=== PATIENT | male | born 1965 | race Caucasian/White ===

== ENCOUNTER 2022-03-08 20:03 | Emergency (ER) | payer OTHER, MEDICAID, SELFPAY ==
[2022-03-08] VITALS (7 sets, daily range): BP systolic 137–178; BP diastolic 76–99; PULSE 64–98; RESP 18; TEMP 37; O2SAT 97–100; BMI 22.4
[2022-03-08] MEDS: ONDANSETRON 4 MG/2 ML INJ IV (20:30)
[2022-03-08 20:36] LABS: Add Manual Diff / Slide Review NO; Basophils Absolute Auto 0 /uL (0-100); Basophils Percent Auto 0.5 % (0-2); Eosinophils Absolute Auto 0 /uL (0-450); Eosinophils Percent Auto 0.4 % (2-4); Hematocrit 36.8 % (41-53); Hemoglobin 13.1 g/dL (13.5-17.5); Lymphocytes Absolute Auto 1100 /uL (1100-4500); Lymphocytes Percent Auto 13.1 % (25-40); Mean Corpuscular HGB Conc 35.7 % (30-36); Mean Corpuscular Hemoglobin 36.9 PG (26-34); Mean Corpuscular Volume 103.3 fL (80-100); Monocytes Absolute Auto 600 /uL (0-900); Monocytes Percent Auto 7.9 % (3-14); Neutrophils Absolute Auto 6300 /uL (1500-7000); Neutrophils Percent Auto 78.1 % (50-75); Platelet Count 161 X10^3/uL (150-400); Red Blood Cell Count 3.56 X10^6/uL (4.5-5.9); Red Cell Distribution Width 12.8 % (11.6-14.8); White Blood Cell Count 8.1 X10^3/uL (4.5-11.0)
[2022-03-08 20:45] LABS: Alanine Aminotransferase 32 IU/L (<50); Albumin 3.9 g/dL (3.5-5.0); Albumin Globulin Ratio 1.4 (1.0-2.8); Alkaline Phosphatase 102 U/L (38-126); Aspartate Aminotransferase 46 IU/L (17-59); BUN Creatinine Ratio 20.9 (6-22); Bilirubin Total 0.9 mg/dL (0.2-1.3); Blood Urea Nitrogen 14 mg/dL (9-20); Calcium 9.1 mg/dL (8.4-10.2); Carbon Dioxide 26 mmol/L (22-32); Chloride 96 mmol/L (98-107); Estimated Glomerular Filt Rate > 60 mL/min (>60); Globulin 2.7 g/dL (1.7-4.1); Glucose 268 mg/dL (70-100); HEMOLYSIS < 15 (0-50); Lipase 713 U/L (23-300); Potassium 3.7 mmol/L (3.4-5.1); Sodium 130 mmol/L (137-145); Total Protein 6.6 g/dL (6.3-8.2)
--- NOTE | 2022-03-08 20:53 | ED_ITS ---
HPI - Abdominal Pain General Chief Complaint: Abdominal Pain Stated Complaint: Nausea severe abd pain lightheaded Time Seen by Provider: 03/08/22 20:53 Source: patient and family Mode of arrival: Ambulatory Limitations: no limitations History of Present Illness HPI narrative: Patient developed epigastric pain while at home several hours ago. Pain radiates around the upper abdomen. He has nausea vomiting, no hematemesis. The pain does not radiate to his back. 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 He has a history of pancreatitis. His last alcoholic drink was about 3 days ago. He has no URI symptoms. His no chest pain or palpitations. He has no pulmonary symptoms. He is on no chronic abdominal medications. He has no diarrhea, no history of GI bleeding. He has no urinary complaints. He has no major abdominal surgeries. He has no history of gallbladder or liver disease. Related Data Previous Rx's Medication Instructions Recorded amoxicillin 875 mg-potassium 875 mg PO BID 7 days #0 tabs 05/30/16 clavulanate 125 mg tablet (Augmentin) Allergies Allergy/AdvReac Type Severity Reaction Status Date / Time No Known Drug Allergies Allergy Unknown Unverified 09/28/17 12:02 codeine AdvReac Intermediate VOMITING Unverified 09/28/17 12:02 Review of Systems Constitutional Constitutional: Reports as per HPI, Denies body ache(s), Denies chills, Denies fever(s), Denies headache(s) and Denies weakness Eyes Eyes: Denies blurry vision ENT Ears, Nose, Mouth, and Throat: Denies dizziness, Denies headache(s), Denies sore throat and Denies throat swelling Cardiovascular Cardiovascular: Denies chest pain, Denies syncope, Denies rapid heart rate, De nies pedal edema, Denies irregular heart rhythm and Denies dyspnea Respiratory Respiratory: Denies cough, Denies dyspnea and Denies wheezing Gastrointestinal Gastrointestinal: Reports abdominal pain, Denies melena, Denies change in bowel habits, Denies change in stool character, Reports nausea and Reports vomiting Genitourinary Genitourinary: Denies dysuria, Denies urinary hesitancy and Denies urinary incontinence Musculoskeletal Musculoskeletal: Denies back pain and Denies arthralgias Integumentary/Breasts Skin/Breast: Denies rash Neurologic Neurologic: Denies confusion, Denies dizziness, Denies syncope, Denies headache(s) and Denies weakness Psychiatric Psychiatric: Denies confusion and Denies depression Endocrine Endocrine: Denies change in body appearance Hematologic/Lymphatic On Anticoagulants: No Allergic/Immunologic Allergic/Immunologic: Denies throat swelling and Denies wheezing Patient History Social History Smoking Status: Current every day smoker Smoking Status: Current every day smoker tobacco type: cigarettes alcohol intake frequency: a few times a month Substance Use Type: does not use Exam Initial Vital Signs Initial Vital Signs: Vital Signs Temperature 98.6 F 03/08/22 20:14 Pulse Rate 98 H 03/08/22 20:14 Respiratory Rate 18 03/08/22 20:14 Blood Pressure 166/99 H 03/08/22 20:14 Pulse Oximetry 100 03/08/22 20:14 Oxygen Delivery Method 03/08/22 20:14 Const General: cooperative, in distress and No diaphoretic Nutritional Appearance: average body habitus Orientation: Orientation ( Normal) [facility] Head: normal to inspection, normocephalic and atraumatic Face and sinus: normal facial exam Mouth: oral mucosae normal Eyes General: Yes appearance normal, both eyes and all related structures Conjunctivae: conjunctivae normal ( no icterus) EOM: EOM intact bilaterally and No nystagmus Neck Neck: normal visual inspection, full ROM and No tender Chest Chest: normal inspection of the chest Resp Effort & Inspection: normal respiratory effort Auscultation: clear to auscultation bilaterally Cardio Rate: regular rate Rhythm: regular rhythm Heart Sounds: S1 normal, S2 normal, no click, no gallops and no murmurs GI Inspection: normal to inspection, no edema, non-distended and no visible herniation Palpation: No guarding, No splenomegaly, tender ( epigastric tenderness.), No ascites and No other Back/Spine/Pelvis Back: No CVA tenderness Thoracic/Lumbar Spine: thoracic and lumbar spine normal to inspection Skin General: no rashes or lesions noted and No jaundice Neuro General: patient alert, patient awake, patient oriented x3 and no focal motor deficits Cranial Nerves: No nystagmus Extrem General: normal to inspection, full ROM, no pedal edema and no calf tenderness Psych Appearance: grossly normal Course Course Course Narrative: The patient has an elevated lipase, indicating pancreatitis. LFTs are normal otherwise. His glucose is elevated, he may have diabetes. He is given combination of Protonix, Reglan, Benadryl and Dilaudid. He is now off in bowel in pain-free, he would like to go home. he is advised to avoid alcohol. He should follow-up with his doctor if symptoms persist, come here if necessary. Orders Ordered: ED Orders 03/08/22 20:14 EKG-12 Lead Stat 03/08/22 20:20 Complete Blood Count AUTO DIFF Stat Comprehensive Metabolic Panel Stat ETOH [Ethanol (ETOH)] Stat Lipase Stat Discontinued Medications Diphenhydramine HCl (Diphenhydramine 50 Mg/Ml Vial) 25 mg IV NOW ONE Stop: 03/08/22 21:32 Last Admin: 03/08/22 21:41 Dose: 25 mg Documented By: BS Hydromorphone HCl (Hydromorphone 1 Mg Inj) 1 mg IV NOW ONE Stop: 03/08/22 21:28 Last Admin: 03/08/22 21:41 Dose: 1 mg Documented By: BRUCE Sodium Chloride (Normal Saline 0.9%) 1,000 mls @ 1,000 mls/hr IV BOLUS ONE Stop: 03/08/22 22:26 Last Infusion: 03/08/22 22:55 Dose: 0 mls/hr Documented By: Admin: 03/08/22 21:40 Dose: 1,000 mls/hr Documented By: BS Metoclopramide HCl (Metoclopramide 10 Mg/2 Ml Inj) 10 mg IV NOW ONE Stop: 03/08/22 21:32 Last Admin: 03/08/22 21:41 Dose: 10 mg Documented By: BRUCE Ondansetron HCl (Ondansetron 4 Mg/2 Ml Inj) 4 mg IV NOW ONE Stop: 03/08/22 20:26 Last Admin: 03/08/22 20:30 Dose: 4 mg Documented By: BS Ondansetron HCl (Ondansetron 4 Mg/2 Ml Inj) 4 mg IV NOW ONE Stop: 03/08/22 21:28 Last Admin: 03/08/22 21:55 Dose: Not Given Documented By: BS Pantoprazole Sodium (Pantoprazole 40 Mg Vial) 40 mg IV NOW ONE Stop: 03/08/22 21:28 Last Admin: 03/08/22 21:41 Dose: 40 mg Documented By: BS Vital Signs Vital signs: Vital Signs - 8 hr 03/08/22 20:14 03/08/22 21:26 03/08/22 21:30 Temperature 98.6 F Pulse Rate 98 H 96 H Respiratory Rate 18 Blood Pressure 166/99 H 178/86 H Pulse Oximetry 100 98 Oxygen Delivery Method Room Air 03/08/22 21:30 03/08/22 22:00 03/08/22 22:00 Temperature Pulse Rate 90 76 Respiratory Rate Blood Pressure 154/90 H Pulse Oximetry 97 97 Oxygen Delivery Method Room Air 03/08/22 22:30 03/08/22 22:30 03/08/22 23:00 Temperature Pulse Rate 64 Respiratory Rate Blood Pressure 137/86 149/76 H Pulse Oximetry 99 Oxygen Delivery Method Room Air 03/08/22 23:00 03/08/22 23:30 03/08/22 23:30 Temperature Pulse Rate 65 69 Respiratory Rate Blood Pressure 165/81 H Pulse Oximetry 98 98 Oxygen Delivery Method MDM - Abdominal Pain Lab Data Result diagrams: 03/08/22 20:20 03/08/22 20:20 Labs: Lab Results 03/08/22 03/08/22 03/08/22 Range/Units 20:20 20:20 20:20 WBC 8.1 (4.5-11.0) X10^3/uL RBC 3.56 L (4.5-5.9) X10^6/uL Hgb 13.1 L (13.5-17.5) g/dL Hct 36.8 L (41-53) % MCV 103.3 H (80-100) fL MCH 36.9 H (26-34) PG MCHC 35.7 (30-36) % RDW 12.8 (11.6-14.8) % Plt Count 161 (150-400) X10^3/uL Neut % (Auto) 78.1 H (50-75) % Lymph % (Auto) 13.1 L (25-40) % [place] % (Auto) 7.9 (3-14) % Eos % (Auto) 0.4 L (2-4) % Baso % (Auto) 0.5 (0-2) % Neut # (Auto) 6300 (5139-9772) /uL Lymph # (Auto) 1100 (5389-1745) /uL [place] # (Auto) 600 (0-900) /uL Eos # (Auto) 0 (0-450) /uL Baso # (Auto) 0 (0-100) /uL Sodium 130 L (137-145) mmol/L Potassium 3.7 (3.4-5.1) mmol/L Chloride 96 L (98-107) mmol/L Carbon Dioxide 26 (22-32) mmol/L BUN 14 (9-20) mg/dL Creatinine 0.67 (0.66-1.25) mg/dL Estimated GFR > 60 (>60) mL/min BUN/Creatinine Ratio 20.9 (6-22) Glucose 268 H (70-100) mg/dL Calcium 9.1 (8.4-10.2) mg/dL Total Bilirubin 0.9 (0.2-1.3) mg/dL AST 46 (17-59) IU/L ALT 32 (<50) IU/L Alkaline Phosphatase 102 (38-126) U/L Total Protein 6.6 (6.3-8.2) g/dL Albumin 3.9 (3.5-5.0) g/dL Globulin 2.7 (1.7-4.1) g/dL Albumin/Globulin Ratio 1.4 (1.0-2.8) Lipase 713 H (23-300) U/L Ethyl Alcohol < 10 ( - 10) mg/dL Discharge Plan Departure Patient Disposition: Home Clinical Impression: Acute pancreatitis, Acute hyperglycemia Instructions: DI for Pancreatitis Activity Restrictions/Additional Instructions: you have a mild case of pancreatitis, you need to avoid all alcohol use. Immediately I would recommend plenty of fluids, and a low-fat diet. advance your diet as tolerated. also, it your glucose level was high, 268. You need to follow-up with your doctor and recheck this. Return here as necessary. Prescriptions: No Action amoxicillin-pot clavulanate [Augmentin] 875 MG/125 MG tablet 875 mg PO BID 7 Days Qty: 0 0RF Referrals: Yobani Weems MD [Primary Care Provider] - Visit Report Forms: Patient Portal/API
[2022-03-08 21:06] LABS: Ethanol (ETOH) < 10 mg/dL
[2022-03-08] MEDS: SODIUM CHLORIDE 0.9% 1,000 ML 1000 ML IV (21:40)
[2022-03-08] MEDS: HYDROMORPHONE 1 MG INJ IV (21:41)
[2022-03-08] MEDS: diphenhydrAMINE 50 MG/ML VIAL 25 MG IV (21:41)
[2022-03-08] MEDS: METOCLOPRAMIDE 10 MG/2 ML INJ IV (21:41)
[2022-03-08] MEDS: PANTOPRAZOLE 40 MG VIAL IV (21:41)
--- NOTE | 2022-03-08 23:48 | PC.NURSE ---
Pt put ergonomic specialist light requesting to leave. Pt expressed frustration that he has been waiting for the MD for some time now. Provider aware of this and will see pt TAMERA. Pt OK with this at this time. IV removed per pt request.
== END 2022-03-08 23:57 | disposition home or self-care (01) ==
PROVIDERS: Emergency Provider Emergency Medicine; Family Provider Orthopaedic Surgery Hand Surgery; PCP Family Medicine
DX: K85.90 Acute pancreatitis without necrosis or infection, unspecified (principal); R73.9 Hyperglycemia, unspecified; R11.2 Nausea with vomiting, unspecified
CPT/HCPCS: 36415; 80053; 80320; 83690; 85025; 93005; 93010; 96361; 96374; 96375; 99284; C9113; J1170; J1200; J2405; J2765

== ENCOUNTER 2022-03-09 07:58 | Emergency (ER) | payer OTHER, MEDICAID, SELFPAY ==
[2022-03-09 08:00] VITALS: BP 180/95; PULSE 70; RESP 16; TEMP 36.6; O2SAT 95; BMI 22.4
[2022-03-09 08:03] VITALS: O2SAT 100
[2022-03-09 08:04] VITALS: BP 180/95; PULSE 77; O2SAT 100
--- NOTE | 2022-03-09 08:07 | ED.ABDPAIN ---
HPI - Abdominal Pain General Chief Complaint: Abdominal Pain Stated Complaint: Nausea, lightheaded, backache, abd pain Time Seen by Provider: 03/09/22 08:01 History of Present Illness HPI narrative: Patient is a 56-year-old male history of diabetes hypertension hyperlipidemia presenting with epigastric pain. He said it started yesterday he was not his some vomiting yesterday. He came to the ED where he will have blood work. He required multiple medications minimal elevation in lipase at 700. He was overall feeling better and. However this morning he started having pain again he threw up once. Overall just not feeling great. He denies any radiation to his chest. He says he drinks alcohol once a week. Pain really has not moved. No specific right upper quadrant pain. Related Data Previous Rx's Medication Instructions Recorded amoxicillin 875 mg-potassium 875 mg PO BID 7 days #0 tabs 05/30/16 clavulanate 125 mg tablet (Augmentin) hydrocodone 5 mg-acetaminophen 325 1 tab PO Q6H PRN pain #20 tabs 03/09/22 mg tablet ondansetron 4 mg disintegrating 4 mg PO Q8H PRN nausea and 03/09/22 tablet vomiting #10 tabs Allergies Allergy/AdvReac Type Severity Reaction Status Date / Time No Known Drug Allergies Allergy Unknown Unverified 09/28/17 12:02 codeine AdvReac Intermediate VOMITING Unverified 09/28/17 12:02 Review of Systems Review of Systems Narrative: GENERAL: Denies chills, fatigue, malaise, fever, sweats, travel HEENT: Denies sinus pain, ear pain, sore throat, difficulty swallowing, neck pain RESPIRATORY: Denies dyspnea, cough, wheezing, hemoptysis, sputum. CARDIOVASCULAR: Denies chest pain, palpitations, orthopnea, edema GASTROINTESTINAL: See HPI : Denies dysuria, frequency, incontinence, hematuria, urinary retention, flank pain. MUSCULOSKELETAL: Denies weakness, joint pain, or bony pain SKIN: No rash, no erythema, no pruritus NEUROLOGIC: Denies weakness, dizziness, headache, numbness, change in speech, confusion PSYCHIATRIC: No concerning psychosocial issues. 12 point review of systems is negative except for those stated above and HPI Patient History Social History Smoking Status: Current every day smoker Smoking Status: Current every day smoker tobacco type: cigarettes alcohol intake frequency: a few times a month Substance Use Type: does not use Exam Initial Vital Signs Initial Vital Signs: Vital Signs Temperature 97.9 F 03/09/22 08:00 Pulse Rate 70 03/09/22 08:00 Respiratory Rate 16 03/09/22 08:00 Blood Pressure 180/95 H 03/09/22 08:00 Pulse Oximetry 95 03/09/22 08:00 Oxygen Delivery Method 03/09/22 08:00 GENERAL: 56-year-old male reading the newspaper overall appears well and in no acute distress. HEENT: Head atraumatic,EOMI, pupils reactive, face symmetric, moist mucous membranes CARDIOVASCULAR: Regular rate and rhythm without murmurs, rubs or gallops. RESPIRATORY: Breath sounds equal bilaterally, no wheezes rales or rhonchi. ABDOMEN: Soft, epigastric tenderness negative Marcos sign no guarding no rebound no lower abdominal pain : No CVA tenderness EXTREMITIES: Normal range of motion, no clubbing or edema. Neurovascularly intact NEUROLOGICAL: Alert and oriented x4 SKIN: Warm, dry, no laceration, no petechiae, no rashes or lesions. Course Orders Ordered: Discontinued Medications Hydromorphone HCl (Hydromorphone 1 Mg Inj) 1 mg IV NOW ONE Stop: 03/09/22 09:42 Last Admin: 03/09/22 10:39 Dose: 1 mg Documented By: AMU Sodium Chloride (Normal Saline 0.9%) 1,000 mls @ 1,000 mls/hr IV BOLUS ONE Stop: 03/09/22 09:10 Last Infusion: 03/09/22 10:40 Dose: 0 mls/hr Documented By: Admin: 03/09/22 08:30 Dose: 1,000 mls/hr Documented By: AMU Ketorolac Tromethamine (Ketorolac 30 Mg/Ml Vial) 30 mg IV NOW ONE Stop: 03/09/22 08:12 Last Admin: 03/09/22 08:29 Dose: 30 mg Documented By: AMU Ondansetron HCl (Ondansetron 4 Mg/2 Ml Inj) 4 mg IV NOW ONE Stop: 03/09/22 08:12 Last Admin: 03/09/22 08:30 Dose: 4 mg Documented By: AMU Vital Signs Vital signs: Vital Signs - 8 hr 03/09/22 11:28 Pulse Rate 83 Blood Pressure 140/88 Pulse Oximetry 98 Oxygen Delivery Method Room Air MDM - Abdominal Pain Lab Data Result diagrams: 03/09/22 08:30 03/09/22 08:30 Labs: Lab Results 03/09/22 03/09/22 03/09/22 Range/Units 08:30 08:30 08:30 WBC 8.0 (4.5-11.0) X10^3/uL RBC 3.47 L (4.5-5.9) X10^6/uL Hgb 12.8 L (13.5-17.5) g/dL Hct 35.7 L (41-53) % MCV 102.8 H (80-100) fL MCH 36.9 H (26-34) PG MCHC 35.9 (30-36) % RDW 12.5 (11.6-14.8) % Plt Count 160 (150-400) X10^3/uL Neut % (Auto) 74.1 (50-75) % Lymph % (Auto) 15.2 L (25-40) % [place] % (Auto) 9.5 (3-14) % Eos % (Auto) 0.6 L (2-4) % Baso % (Auto) 0.6 (0-2) % Neut # (Auto) 5900 (6947-5507) /uL Lymph # (Auto) 1200 (0832-0138) /uL [place] # (Auto) 800 (0-900) /uL Eos # (Auto) 0 (0-450) /uL Baso # (Auto) 0 (0-100) /uL Sodium 131 L (137-145) mmol/L Potassium 3.7 (3.4-5.1) mmol/L Chloride 95 L (98-107) mmol/L Carbon Dioxide 28 (22-32) mmol/L BUN 13 (9-20) mg/dL Creatinine 0.67 (0.66-1.25) mg/dL Estimated GFR > 60 (>60) mL/min BUN/Creatinine Ratio 19.4 (6-22) Glucose 220 H (70-100) mg/dL Calcium 8.9 (8.4-10.2) mg/dL Total Bilirubin 0.8 (0.2-1.3) mg/dL AST 38 (17-59) IU/L ALT 27 (<50) IU/L Alkaline Phosphatase 88 (38-126) U/L Total Creatine Kinase 24 L (55-170) U/L CK-MB (CK-2) TNP CK-MB (CK-2) Rel Index TNP Troponin I 0.014 (0.01-0.034) ng/mL Total Protein 6.4 (6.3-8.2) g/dL Albumin 3.6 (3.5-5.0) g/dL Globulin 2.8 (1.7-4.1) g/dL Albumin/Globulin Ratio 1.3 (1.0-2.8) Lipase 316 H D (23-300) U/L Carcinoembryonic Ag 6.7 H (0.1-3.0) ng/mL Imaging Data CT scan - abdomen/pelvis: Radiologist's Impression: nt: Germán Maddox MR#: [id number] : 1965 Acct:[id number] Age/Sex: 56 / M Date of Service: 03/09/22 Loc: ED Accession Number: [id number] ?? Procedure: CT abdomen pelvis w con Ordering Provider: Jaclyn Mims D.O. PROCEDURE:? CT ABDOMEN PELVIS W CON ? INDICATIONS:? epigastric pain ? TECHNIQUE:? After the administration of intravenous contrast, axial sections acquired from the lung bases to the pubic symphysis.? Coronal and sagittal reformats were performed.? For radiation dose reduction, the following was used:? automated exposure control, adjustment of mA and/or kV according to patient size.? ? COMPARISON:? [facility], CT, ABDOMEN/PELVIS WITH CONTRAST, 12/25/2015, 11:12. ? FINDINGS:? Peripancreatic edema with pancreatic atrophy and borderline pancreatic ductal dilatation in the head and proximal body.? There is also some mucosal hyperenhancement of the ductal epithelium.? Although not entirely definitive, there is a somewhat masslike appearance of the inferior pancreatic head with suggestion of spiculation and tethering into the adjacent central mesenteric root.? Peripancreatic and portacaval mild lymphadenopathy is present.? Additional suspicious retroperitoneal and retrocrural nodes present.? There are numerous hepatic hypodensities which are indeterminate and or not visualized on the comparison study.? No abnormally dilated or thickened loop of bowel.? Kidneys and adrenal glands demonstrate no acute finding.? Spleen unremarkable.? Nonaneurysmal abdominal aorta.? No acute or suspicious osseous lesion.? No acute finding in the partially visualized lung bases. ? ? IMPRESSION: ? Peripancreatic inflammatory changes suggestive of pancreatitis. ? Suspected pancreatic mass. ? Multiple hepatic masses suspicious for possible metastatic lesions. ? Upper abdominal lymphadenopathy may be reactive in the setting of pancreatitis although metastatic lymphadenopathy would appear similar. ? MRI evaluation of the liver and pancreas recommended. ? ? Dictated by: Len Yao M.D. on 03/09/2022 at 8:49 ? ? Chest x-ray: Radiologist's Impression: XRay Report Signed Patient: Germán Maddox MR#: [id number] : 1965 Acct:[id number] Age/Sex: 56 / M Date of Service: 03/09/22 Loc: ED Accession Number: [id number] ?? Procedure: XR chest 1V Ordering Provider: Jaclyn Mims D.O. PROCEDURE:? XR CHEST 1V ? INDICATIONS:? Chest pain ? TECHNIQUE:? One view of the chest was acquired.? ? COMPARISON:? [facility], , CHEST 2 VIEW, 12/28/2011, 13:07. ? FINDINGS:? ? Surgical changes and devices:? None.? ? Lungs and pleura:? Lungs are clear.? No pleural effusions or pneumothorax.? ? Mediastinum:? Mediastinal contours appear normal.? Heart size is normal.? ? Bones and chest wall:? No suspicious bony lesions.? Overlying soft tissues appear unremarkable.? ? IMPRESSION:? No acute cardiopulmonary process demonstrated radiographically. ? ? Dictated by: Len Yao M.D. on 03/09/2022 at 8:48 ? ? ECG Data Interpretation: Normal sinus rhythm rate 70 SD interval 204 QRS 70 QTC 425 T-wave inversion noted in lead 3 only similar to previous EKG from the day before in previous EKG in 2016 MDM Narrative Medical decision making narrative: Patient overall appears comfortable but still having pain dilaudid does seem to help. CT does show pancreatic mass with multiple liver masses as well concern for metastatic cancer. Blood work is overall reassuring. Dr. Weems, patient's PCP updated on concerning findings. Agrees to see patient tomorrow. Time patient does not meet admission criteria. Close follow-up as an arranged. Discharge Plan Departure Patient Disposition: Home Clinical Impression: Mass of pancreas Instructions: Pancreatic Cancer Activity Restrictions/Additional Instructions: *You have been diagnosed with pancreatic mass with masses in her liver *What to do: At this time there is concern for cancer. I have spoken to her PCP who is happy to see you tomorrow. Please call his office today to schedule the appointment. *Continue to take medications as directed Marcy 1 tablet every 6 hours if needed for severe pain Zofran 4 mg every 8 hours if needed for nausea vomiting *Follow up with your primary care provider in 2-3 days or call [phone] *Return to ER if you should have persistent vomiting increasing pain unable to tolerate fluids or any new, worsening or concerning symptoms CONTROLLED SUBSTANCE DISCHARGE (Narcotoic/benzodiazepine/Flexeril/Phenergan) 1. You have been prescribed narcotic medications, it does have acetaminophen/Tylenol/paracetamol in it, DO NOT TAKE MORE THAN 4,00mg in 24 hours of Tylenol. TRAMADOL DOES NOT CONTAIN TYLENOL 2. Please understand that we cannot provide further refills of narcotics, benzodiazepines or controlled substances through the ED and her pain management will need to be through your provider. 3. While on these medications you cannot drive or operate heavy machinery. 4. You cannot sign legal documents or perform any duties such as this. 5. As long as you're taking opiate pain medications he should also be taking a stool softener such as Colace, Dulcolax, MiraLAX or prune juice, to help avoid constipation. Prescriptions: New hydrocodone-acetaminophen 5-325 mg tablet 1 tab PO Q6H PRN (Reason: pain) Qty: 20 0RF ondansetron 4 mg tablet,disintegrating 4 mg PO Q8H PRN (Reason: nausea and vomiting) Qty: 10 0RF No Action amoxicillin-pot clavulanate [Augmentin] 875 MG/125 MG tablet 875 mg PO BID 7 Days Qty: 0 0RF Referrals: Yobani Weems MD [Primary Care Provider] - Visit Report Forms: Patient Portal/API
--- NOTE | 2022-03-09 08:11 | DI.CT.S_ITS ---
PROCEDURE: CT ABDOMEN PELVIS W CON INDICATIONS: epigastric pain TECHNIQUE: After the administration of intravenous contrast, axial sections acquired from the lung bases to the pubic symphysis. Coronal and sagittal reformats were performed. For radiation dose reduction, the following was used: automated exposure control, adjustment of mA and/or kV according to patient size. COMPARISON: [facility], CT, ABDOMEN/PELVIS WITH CONTRAST, 12/25/2015, 11:12. FINDINGS: Peripancreatic edema with pancreatic atrophy and borderline pancreatic ductal dilatation in the head and proximal body. There is also some mucosal hyperenhancement of the ductal epithelium. Although not entirely definitive, there is a somewhat masslike appearance of the inferior pancreatic head with suggestion of spiculation and tethering into the adjacent central mesenteric root. Peripancreatic and portacaval mild lymphadenopathy is present. Additional suspicious retroperitoneal and retrocrural nodes present. There are numerous hepatic hypodensities which are indeterminate and or not visualized on the comparison study. No abnormally dilated or thickened loop of bowel. Kidneys and adrenal glands demonstrate no acute finding. Spleen unremarkable. Nonaneurysmal abdominal aorta. No acute or suspicious osseous lesion. No acute finding in the partially visualized lung bases. IMPRESSION: Peripancreatic inflammatory changes suggestive of pancreatitis. Suspected pancreatic mass. Multiple hepatic masses suspicious for possible metastatic lesions. Upper abdominal lymphadenopathy may be reactive in the setting of pancreatitis although metastatic lymphadenopathy would appear similar. MRI evaluation of the liver and pancreas recommended. Dictated by: Len Yao M.D. on 03/09/2022 at 8:49 Approved by: Len Yao M.D. on 03/09/2022 at 8:54
--- NOTE | 2022-03-09 08:11 | DI.RAD.S_ITS ---
PROCEDURE: XR CHEST 1V INDICATIONS: Chest pain TECHNIQUE: One view of the chest was acquired. COMPARISON: [facility], , CHEST 2 VIEW, 12/28/2011, 13:07. FINDINGS: Surgical changes and devices: None. Lungs and pleura: Lungs are clear. No pleural effusions or pneumothorax. Mediastinum: Mediastinal contours appear normal. Heart size is normal. Bones and chest wall: No suspicious bony lesions. Overlying soft tissues appear unremarkable. IMPRESSION: No acute cardiopulmonary process demonstrated radiographically. Dictated by: Len Yao M.D. on 03/09/2022 at 8:48 Approved by: Len Yao M.D. on 03/09/2022 at 8:49
[2022-03-09] MEDS: KETOROLAC 30 MG/ML VIAL IV (08:29)
[2022-03-09] MEDS: SODIUM CHLORIDE 0.9% 1,000 ML 1000 ML IV (08:30)
[2022-03-09] MEDS: ONDANSETRON 4 MG/2 ML INJ IV (08:30)
[2022-03-09 08:42] LABS: Add Manual Diff / Slide Review NO; Basophils Absolute Auto 0 /uL (0-100); Basophils Percent Auto 0.6 % (0-2); Eosinophils Absolute Auto 0 /uL (0-450); Eosinophils Percent Auto 0.6 % (2-4); Hematocrit 35.7 % (41-53); Hemoglobin 12.8 g/dL (13.5-17.5); Lymphocytes Absolute Auto 1200 /uL (1100-4500); Lymphocytes Percent Auto 15.2 % (25-40); Mean Corpuscular HGB Conc 35.9 % (30-36); Mean Corpuscular Hemoglobin 36.9 PG (26-34); Mean Corpuscular Volume 102.8 fL (80-100); Monocytes Absolute Auto 800 /uL (0-900); Monocytes Percent Auto 9.5 % (3-14); Neutrophils Absolute Auto 5900 /uL (1500-7000); Neutrophils Percent Auto 74.1 % (50-75); Platelet Count 160 X10^3/uL (150-400); Red Blood Cell Count 3.47 X10^6/uL (4.5-5.9); Red Cell Distribution Width 12.5 % (11.6-14.8)
[2022-03-09 08:58] LABS: Alanine Aminotransferase 27 IU/L (<50); Albumin 3.6 g/dL (3.5-5.0); Albumin Globulin Ratio 1.3 (1.0-2.8); Alkaline Phosphatase 88 U/L (38-126); Aspartate Aminotransferase 38 IU/L (17-59); BUN Creatinine Ratio 19.4 (6-22); Bilirubin Total 0.8 mg/dL (0.2-1.3); Blood Urea Nitrogen 13 mg/dL (9-20); Calcium 8.9 mg/dL (8.4-10.2); Carbon Dioxide 28 mmol/L (22-32); Chloride 95 mmol/L (98-107); Creatine Kinase 24 U/L (55-170); Estimated Glomerular Filt Rate > 60 mL/min (>60); Globulin 2.8 g/dL (1.7-4.1); Glucose 220 mg/dL (70-100); HEMOLYSIS < 15 (0-50); Lipase 316 U/L (23-300); Potassium 3.7 mmol/L (3.4-5.1); Sodium 131 mmol/L (137-145); Total Protein 6.4 g/dL (6.3-8.2)
[2022-03-09 09:09] LABS: Troponin I 0.014 ng/mL (0.01-0.034)
[2022-03-09] MEDS: HYDROMORPHONE 1 MG INJ IV (10:39)
[2022-03-09 11:28] VITALS: BP 140/88; PULSE 83; O2SAT 98
[2022-03-09 12:03] LABS: Carcinoembryonic Antigen 6.7 ng/mL (0.1-3.0)
[2022-03-10 06:32] LABS: Cancer (Carbohydrate) Ag 19-9 31 U/mL (0-35)
== END 2022-03-09 11:30 | disposition home or self-care (01) ==
PROVIDERS: Emergency Provider Emergency Medicine; Family Provider Orthopaedic Surgery Hand Surgery; PCP Family Medicine
DX: K86.89 Other specified diseases of pancreas (principal); R07.9 Chest pain, unspecified
CPT/HCPCS: 36415; 71045; 74177; 80053; 82378; 82550; 83690; 84484; 85025; 86301; 93005; 93010; 96361; 96374; 96375; 99284; J1170; J1885; J2405; Q9967